=== PATIENT | male | born 1995 | race Caucasian/White ===

== ENCOUNTER 2023-02-15 00:24 | Emergency (ER) | payer BC ==
[~2023-02-15] VITALS: Ht 182.9 cm; Wt 81.6 kg
--- NOTE | 2023-02-15 01:08 | NUR ---
Patient ambulated to room, informed of plan of care, no s/s of any distress noted, awaiting MD exam.
--- NOTE | 2023-02-15 02:18 | NUR ---
Radiology at bedside.
--- NOTE | 2023-02-15 03:10 | NUR ---
Patient resting in bed awaiting MD re-eval.
--- NOTE | 2023-02-15 05:26 | NUR ---
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
--- NOTE | 2023-02-15 05:30 | NUR ---
Patient continues to rest without c/o.
--- NOTE | 2023-02-15 05:53 | NUR ---
Patient discharged to home in stable condition. Written and verbal after care instructions given. Patient verbalizes understanding of instructions. Stressed follow up or return to ER for worsening s/s. Patient walked out with steady gait.
[2023-02-15 05:55] VITALS: BP 100/68
== END 2023-02-15 05:57 | disposition home or self-care (01) ==
LOC: ER 00:33
DX: M54.2 Cervicalgia (principal)
CPT/HCPCS: 70490; 71045; A4663